=== PATIENT | female | born 1975 | race Caucasian/White ===

== ENCOUNTER 2016-10-16 06:53 | Inpatient (IN) | payer OTHER ==
[2016-10-10 15:24] LABS: BASOPHILS % (AUTO) 0.6 % (0.0-2.0); EOSINOPHILS % (AUTO) 3.6 % (1.0-6.0); HEMOGLOBIN 13.2 g/dL (12.0-16.0); LYMPHOCYTES % (AUTO) 32.7 % (22.0-44.0); MEAN CORPUSCULAR HEMOGLOBIN 31.2 pg (26.0-34.0); MEAN CORPUSCULAR HGB CONC 32.9 G/dL (31.0-37.0); MEAN CORPUSCULAR VOLUME 95 fL (80-100); MONOCYTES # (AUTO) 0.4 K/uL (0.1-1.0); MONOCYTES % (AUTO) 4.7 % (2.0-9.0); NEUTROPHILS # (AUTO) 5.4 K/uL (1.8-7.7); NEUTROPHILS % (AUTO) 58.4 % (40.0-70.0); PLATELET COUNT (AUTO) 273 K/uL (150-450); RED BLOOD CELL COUNT(AUTO) 4.23 MIL/uL (4.00-5.20); RED CELL DISTRIBUTION WIDTH 13.6 % (11.5-14.5); WHITE BLOOD COUNT (AUTO) 9.2 K/uL (4.5-11.0)
[2016-10-10 15:34] LABS: ANION GAP 9 mmol/L (8-16); CALCIUM, TOTAL 8.9 mg/dL (8.8-10.5); CARBON DIOXIDE 25 mmol/L (22-29); CHLORIDE 105 mmol/L (98-107); GLOMERULAR FILTR. RATE CALC > 60 mL/min (>60); SODIUM SERUM 139 mmol/L (136-145); UREA NITROGEN, BLOOD 14 mg/dL (7-18)
[2016-10-10 15:41] LABS: ALANINE AMINOTRANSFERASE 30 U/L (12-78); ASPARTATE AMINOTRANSFERASE 16 U/L (15-37); BILIRUBIN,TOTAL 0.2 mg/dL (0.1-1.0); TOTAL PROTEIN, SERUM 7.2 g/dL (6.4-8.2)
[2016-10-10 17:13] LABS: APPEARANCE,URINE CLEAR (CLEAR); GLUCOSE, URINE (UA) NEGATIVE (NEGATIVE); KETONES,URINE NEGATIVE (NEGATIVE); LEUKOCYTE ESTERASE ,URINE NEGATIVE (NEGATIVE); OCCULT BLOOD,URINE TRACE (NEGATIVE); PROTEIN,URINE NEGATIVE (NEGATIVE)
[2016-10-10 17:17] LABS: ADD UA MICROSCOPIC YES
[2016-10-10 17:26] LABS: RBC,URINE None Seen /HPF (0-2); SQUAMOUS EPITHELIAL CELL,UR Rare /LPF (None Seen); WBC,URINE 0-2 /HPF (0-5)
[~2016-10-16] VITALS: Ht 160 cm; Wt 85.0 kg
[~2016-10-16 06:53] MED LIST: CITA20TA9 PO; DEXAMETHASONE SOD PHOS 4 MG/ML VIAL IVP ONE; FentaNYL CITRATE-PF 250 MCG/5 ML VIAL IVP ONE; HYD25 PO; HYDROmorphone 2 MG/ML SYRINGE IVP ONE; KETAMINE HCL 50 MG/ML 10 ML VIAL IVP ONE; LEVO88TA4 PO; LIDOCAINE HCL/PF 2% 5 ML VIAL IM ONE; LORA2TAB2 PO; METH18TA PO; MIDAZOLAM HCL 2 MG/2 ML VIAL IVP ONE; ONDANSETRON HCL 4 MG/2 ML VIAL IVP ONE; PERCT10 PO; PROPOFOL 1% 20 ML VIAL IVP ONE; SUCCINYLCHOLINE CHLORIDE 20 MG/ML 10 ML VIAL IVP ONE; TOPI100 PO
[2016-10-16] MEDS ORDERED: RINGERS SOLUTION,LACTATED 1,000 ML IV ONE ×2 (06:57→07:30)
[2016-10-16] MEDS ORDERED: BUPIVACAINE HCL/PF 0.5% 30 ML VIAL ONE (07:56)
[2016-10-16] MEDS ORDERED: BENZOCAINE/MENTHOL LOZENGE [8 LOZENGES/PACKET] PO PRN (08:30)
[2016-10-16] MEDS ORDERED: DEXAMETHASONE SOD PHOS 4 MG/ML VIAL IVP PRN (08:30)
[2016-10-16] MEDS ORDERED: MAG HYDROX/AL HYDROX/SIMETH 30 ML SUSP UDCUP PO PRN (08:30)
[2016-10-16] MEDS ORDERED: DiphenhydrAMINE HCL 50 MG/ML VIAL IVP PRN (08:30)
[2016-10-16] MEDS ORDERED: ZOLPIDEM TARTRATE 10 MG TABLET PO PRN (08:30)
[2016-10-16] MEDS ORDERED: ACETAMINOPHEN 1000 MG/ISO-OSM 100 ML IV ONE (08:35)
[2016-10-16] MEDS: DOCUSATE SODIUM 100 MG CAPSULE PO SCH ×2 (09:00→20:57)
[2016-10-16] MEDS ORDERED: VANCOMYCIN HCL 1 GM/D5% WATER 200 ML IV ONE (09:00)
[2016-10-16] MEDS ORDERED: HYDROmorphone 2 MG/ML SYRINGE IVP PRN (09:30)
[2016-10-16] MEDS ORDERED: ONDANSETRON HCL 4 MG/2 ML VIAL IVP PRN (09:30)
[2016-10-16] MEDS ORDERED: ZOLPIDEM TARTRATE 5 MG TABLET PO PRN (09:30)
[2016-10-16] MEDS ORDERED: PROMETHAZINE HCL 25 MG/ML VIAL IM PRN (09:30)
[2016-10-16] MEDS ORDERED: FentaNYL CITRATE-PF 100 MCG/2 ML VIAL IVP PRN (09:30)
[2016-10-16] MEDS ORDERED: MEPERIDINE-PF 25 MG/ML SYRINGE IVP PRN (09:30)
[2016-10-16] MEDS ORDERED: CYCLOBENZAPRINE HCL 10 MG TABLET PO PRN (09:30)
[2016-10-16] MEDS: HYDROmorphone 2 MG/ML SYRINGE IVP PRN ×5 (11:18→22:01)
[2016-10-16 11:26] VITALS: BP 125/75
[2016-10-16] MEDS: ACETAMINOPHEN 1000 MG/ISO-OSM 100 ML IV SCH ×2 (14:57→20:57)
[2016-10-16] MEDS ORDERED: HydrOXYzine HCL 25 MG TABLET PO SCH (15:00)
[2016-10-16 15:25] VITALS: BP 112/62
[2016-10-16 19:34] VITALS: BP 102/67
[2016-10-16] MEDS: OXYGEN THERAPY IH SCH (20:00)
[2016-10-16] MEDS ORDERED: TOPIRAMATE 100 MG TABLET PO SCH (21:00)
[2016-10-16] MEDS ORDERED: LORazepam 1 MG TABLET PO SCH (21:00)
[2016-10-16] MEDS ORDERED: CITALOPRAM HYDROBROMIDE 20 MG TABLET PO SCH (21:00)
[2016-10-16 23:38] VITALS: BP 105/60
[2016-10-17] MEDS: HYDROmorphone 2 MG/ML SYRINGE IVP PRN ×3 (01:51→08:27)
[2016-10-17] MEDS: ACETAMINOPHEN 1000 MG/ISO-OSM 100 ML IV SCH ×2 (03:33→09:00)
[2016-10-17 03:43] VITALS: BP 98/61
[2016-10-17] MEDS ORDERED: LEVOTHYROXINE SODIUM 88 MCG TABLET PO SCH (06:30)
[2016-10-17 07:43] VITALS: BP 89/44
[2016-10-17] MEDS: OXYGEN THERAPY IH SCH (08:00)
[2016-10-17] MEDS: DOCUSATE SODIUM 100 MG CAPSULE PO SCH (08:27)
[2016-10-17] MEDS ORDERED: METHYLPHENIDATE 36 MG PO SCH (09:00)
[2016-10-17] MEDS ORDERED: OxyCODONE HCL/ACETAMINOPHEN 10-325 MG TABLET PO PRN ×2 (10:00→15:00)
[2016-10-17 11:42] VITALS: BP 97/58
== END 2016-10-17 13:55 | disposition home or self-care (01) | DRG 473 ==
LOC: 4E 06:53
PROVIDERS: ADMIT Orthopaedic Surgery Orthopaedic Surgery of the Spine; ATTEND Orthopaedic Surgery Orthopaedic Surgery of the Spine
PROC: 0RG10A0 Fusion of Cervical Vertebral Joint with Interbody Fusion Device, Anterior Approach, Anterior Column, Open Approach (ICD-10-PCS; principal; 2016-10-16 09:05)
DX: M48.02 Spinal stenosis, cervical region (principal); I10 Essential (primary) hypertension; E66.3 Overweight; G89.29 Other chronic pain; F32.9 Major depressive disorder, single episode, unspecified; E03.9 Hypothyroidism, unspecified; Z88.0 Allergy status to penicillin; Z68.33 Body mass index [BMI] 33.0-33.9, adult
CPT/HCPCS: 87081; 97161; 97165; 97530; 97535; C1713; J0131; J0330; J1100; J1170; J2250; J2405; J2704; J3010; J3370; J3490; J7120